=== PATIENT | female | born 2000 | race Caucasian/White ===

== ENCOUNTER 2021-10-17 07:31 | Emergency (ER) | payer OTHER ==
[~2021-10-17] VITALS: Ht 154.9 cm; Wt 62.0 kg
[2021-10-17 07:46] VITALS: BP 132/82
== END 2021-10-17 09:04 | disposition home or self-care (01) ==
LOC: ER 07:31
DX: M25.59 Pain in other specified joint (principal); M25.519 Pain in unspecified shoulder; M54.89 Other dorsalgia; M25.542 Pain in joints of left hand; M25.541 Pain in joints of right hand; M25.522 Pain in left elbow; M26.609 Unspecified temporomandibular joint disorder, unspecified side
CPT/HCPCS: 99281